=== PATIENT | male | born 1955 | race Caucasian/White ===

== ENCOUNTER 2016-05-26 07:30 | Day surgery (SDC) | payer OTHER ==
[2016-05-26] MEDS ORDERED: SIMETHICONE 40 MG/0.6 ML ML ONE (08:08)
[2016-05-26] MEDS ORDERED: GLYCOPYRROLATE 0.2 MG/ML VIAL ONE (08:08)
[2016-05-26] MEDS: MEPERIDINE HCL/PF 100 MG/ML AMP ONE ×2 (08:58→09:02)
[2016-05-26] MEDS: MIDAZOLAM HCL 5 MG/5 ML VIAL ONE ×4 (08:58→09:04)
[2016-05-26 09:33] VITALS: BP 116/81; PULSE 75; RESP 16
== END 2016-05-26 10:23 | disposition home or self-care (01) ==
LOC: SDS 07:30
PROVIDERS: ATTEND Colon & Rectal Surgery
DX: Z12.11 Encounter for screening for malignant neoplasm of colon (principal); K63.5 Polyp of colon; K57.30 Diverticulosis of large intestine without perforation or abscess without bleeding; K64.8 Other hemorrhoids
CPT/HCPCS: 45380; 88305; J2175; J2250; J7030; J3490